=== PATIENT | male | born 1990 | race Caucasian/White ===

== ENCOUNTER 2019-11-03 02:30 | Emergency (ER) | payer MEDICAID, SELFPAY ==
[2019-11-03 02:31] VITALS: BP 126/77; PULSE 109; RESP 18; TEMP 36.7; O2SAT 100
--- NOTE | 2019-11-03 03:09 | PC.NURSE ---
Patient refused to change into paper scrubs, patient states that he could not pee at this time and did not want to pee.
[2019-11-03 03:16] LABS: Basophils # 0.1 10^3/uL (0.0-0.1); Basophils % 0.6 %; Eosinophils # 0.3 10^3/uL (0.0-0.8); Eosinophils % 3.2 %; Hematocrit 44.9 % (42.0-52.0); Hemoglobin 14.4 g/dL (11.7-16.6); Lymphocytes % 29.4 %; Mean Corpuscular HGB Conc 32.1 g/dL (30.0-36.0); Mean Corpuscular Hemoglobin 30.8 pg (28.0-34.0); Mean Corpuscular Volume 95.9 fL (80-94); Monocytes # 0.8 10^3/uL (0.2-0.9); Monocytes % 7.7 %; Neutrophils # 5.9 10^3/uL (1.8-7.7); Neutrophils % 58.9 %; Nucleated Red Blood Cells % 0 %; Platelet Count 385 10^3/cmm (130-400); Red Blood Count 4.68 10^6/uL (4.1-5.3); Red Cell Distribution Width 13.2 % (12.1-15.1); White Blood Count 10.1 10^3/uL (4.0-10.0)
[2019-11-03 03:35] LABS: Alanine Aminotransferase 19 U/L (0-41); Albumin Level 4.5 g/dL (3.5-5.2); Alkaline Phosphatase 70 IU/L (40-130); Anion Gap 13.9 (5-19); Aspartate Amino Transferase 16 U/L (0-40); Blood Urea Nitrogen 20 mg/dL (6-20); Carbon Dioxide 29 mmol/L (22-29); Chloride 101 mmol/L (98-107); Globulin 2.5 g/dL (1.3-4.6); Glomerular Filtration Rate 79.7 mL/min (90-130); Glucose 98 mg/dL (65-115); Lithium < 0.1 mmol/L (0.6-1.2); Osmolality Calculated 287 mOsm/kg (285-295); Potassium 3.9 mmol/L (3.5-5.1); Sodium 140 mmol/L (136-145); Total Bilirubin 0.2 mg/dL (0.15-1.2)
[2019-11-03 03:40] LABS: Salicylate < 0.3 mg/dL (3-10)
[2019-11-03 03:41] LABS: Acetaminophen < 5.0 ug/mL (10-30); Alcohol Level < 10 mg/dL (0-10); Thyroid Stimulating Hormone 1.38 uIU/mL (0.27-4.20)
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
--- NOTE | 2019-11-03 05:45 | PC.NURSE ---
1:1 sitter maintained at doorway
--- NOTE | 2019-11-03 05:46 | PC.NURSE ---
Patient refused to change into paper scrubs
--- NOTE | 2019-11-03 06:23 | PC.NURSE ---
1:1 sitter maintained at doorway
--- NOTE | 2019-11-03 07:49 | PC.NURSE ---
DR PAULINO REQUESTED PATIENT NOT BE DRESSED OUT AND WILL WAIT FOR TO COME DOWN AND ASSESS HIM
[2019-11-03 07:51] LABS: Add Urine Microscopic? NO
[2019-11-03 07:56] LABS: Bilirubin Urine Neg (NEGATIVE); Blood Urine Neg (Negative); Glucose Urine UA Norm (Normal); Ketones Urine Negative (Negative); Leukocyte Esterase Urine Negative (Negative); Nitrate Urine Negative (Negative); Protein Urine Neg (Negative); Urine Appearance Clear (CLEAR); Urine Color Yellow (Yellow); Urobilinogen Urine Norm (Negative); pH Urine 6 (5-7)
[2019-11-03 08:49] LABS: Amphetamines Screen Urine Positive (Negative); Barbiturates Screen Urine Negative (Negative); Benzodiazepines Screen Urine Negative (Negative); Cocaine Screen Urine Negative (Negative); Opiate Screen Urine Negative (Negative); PCP Screen Urine Negative (Negative); THC Screen Urine Positive (Negative)
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
[2019-11-03 10:56] VITALS: BP 122/71; PULSE 20; RESP 18; O2SAT 100
== END 2019-11-03 11:03 ==
PROVIDERS: Emergency Medicine; Emergency Provider Emergency Medicine
DX: R45.851 Suicidal ideations (principal); F17.210 Nicotine dependence, cigarettes, uncomplicated
CPT/HCPCS: 12345; 80053; 80178; 80306; 80307; 81003; 84443; 85025; 99284; 99285

== ENCOUNTER 2020-06-28 20:18 | Emergency (ER) | payer MEDICAID, SELFPAY ==
[2020-06-28 20:22] VITALS: BP 134/76; PULSE 119; RESP 22; TEMP 37.2; O2SAT 100; BMI 22.2
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
[2020-06-28] MEDS: TRAMadol 50 mg Tablet PO (21:04)
== END 2020-06-28 21:37 | disposition home or self-care (01) ==
PROVIDERS: Emergency Provider Nurse Practitioner Family
DX: S01.311A Laceration without foreign body of right ear, initial encounter (principal); F17.210 Nicotine dependence, cigarettes, uncomplicated; Y04.8XXA Assault by other bodily force, initial encounter
CPT/HCPCS: 12345; 70160; 71101; 99281; 99283

== ENCOUNTER 2024-03-07 11:57 | Emergency (ER) | payer SELFPAY ==
[2024-03-07 12:02] VITALS: BP 119/71; PULSE 98; RESP 18; TEMP 36.7; O2SAT 98; BMI 21.5
--- NOTE | 2024-03-07 12:05 | ECG_ITS ---
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 Measurements Intervals [place] Rate: 93 P: 61 MO: 171 QRS: 69 QRSD: 93 T: 54 QT: 333 QTc: 416 Interpretive Statements SINUS RHYTHM Compared to ECG 05/18/2015 20:49:03 No significant changes Electronically Signed On 03-08-2024 18:06:53 CDT by Arcadio Wynn M.D. [id number]
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
[2024-03-07 12:13] LABS: Basophils # 0.1 10^3/uL (0.0-0.1); Basophils % 0.5 %; Eosinophils # 0.2 10^3/uL (0.0-0.8); Eosinophils % 2.3 %; Hematocrit 42.8 % (37-53); Lymphocytes # 2.2 10^3/uL (0.8-4.8); Lymphocytes % 22.1 %; Mean Corpuscular HGB Conc 32.9 g/dL (30-55); Mean Corpuscular Volume 94.1 fl (82-101); Mean Platelet Volume 9.2 fL (7.4-10.4); Monocytes # 0.7 10^3/uL (0.2-0.9); Monocytes % 7.3 %; Neutrophils # 6.83 10^3/uL (1.8-7.7); Neutrophils % 67.5 %; Nucleated Red Blood Cells % 0 %; Platelet Count 362 10^3/cmm (157-399); Red Blood Count 4.55 10^6/uL (3.85-5.65); Red Cell Distribution Width 13.4 % (12.1-15.1); White Blood Count 10.11 10^3/uL (3.29-11.43)
[2024-03-07 12:25] LABS: Alanine Aminotransferase 18 U/L (0-41); Albumin Level 4.5 g/dL (3.5-5.2); Alkaline Phosphatase 58 U/L (40-130); Anion Gap 16.5 (5-19); Aspartate Amino Transferase 19 U/L (0-40); Blood Urea Nitrogen 22 mg/dL (6-20); Calcium 9.8 mg/dL (8.5-10.5); Carbon Dioxide 26 mmol/L (22-29); Chloride 102 mmol/L (98-107); Creatinine Clr Calc Pharmacy 87.9476; Globulin 2.8 g/dL (1.3-4.6); Glomerular Filtration Rate 69.7 mL/min (90-130); Glucose 118 mg/dL (65-115); Osmolality Calculated 294 mOsm/kg (285-295); Potassium 4.5 mmol/L (3.5-5.1); Sodium 140 mmol/L (136-145); Total Bilirubin 0.4 mg/dL (0.15-1.2); Total Protein 7.3 g/dL (6.6-8.7)
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
[2024-03-07] MEDS: iohexol 350 mg/mL 500 mL Btl (per mL) IV (12:43)
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
[2024-03-07 13:59] LABS: Charge for UA Resulting for Rev
--- NOTE | 2024-03-07 14:02 | PC.NURSE ---
MEDICATION ADMINISTRATION DELAYED DUE TO THIS NURSE IN CT WITH OTHER PATIENT.
[2024-03-07 14:03] LABS: Bilirubin Urine Negative (Negative); Blood Urine Negative (Negative); Glucose Urine UA Negative (Normal); Ketones Urine Negative (Negative); Leukocyte Esterase Urine Negative (Negative); Nitrate Urine Negative (Negative); Protein Urine Negative (Negative); Urine Appearance Clear (CLEAR); Urine Color Yellow (Yellow); pH Urine 6.5 (5-7)
[2024-03-07 14:05] LABS: Bacteria Urine None Seen /hpf; Hyaline Casts Urine 1.21 /lpf; RBC Urine 0-2 /hpf (0-2); Squamous Epithelial Cell Urine 0-5 /hpf (0-5); WBC Urine 0-5 /hpf (0-5)
[2024-03-07 14:07] VITALS: RESP 16
[2024-03-07] MEDS: morphine 4 mg/mL SDV 1 mL IVP (14:07)
[2024-03-07] MEDS: ondansetron 2 mg/ML SDV 2 mL 4 MG IVP (14:08)
[2024-03-07] MEDS: tetanus-dipt-pertussis 0.5 mL SDV IM (14:15)
[2024-03-07 14:34] VITALS: PULSE 85; O2SAT 100
[2024-03-07 14:37] VITALS: BP 124/81
--- NOTE | 2024-03-07 15:36 | DCPLANNER ---
messaged ortho for er f/u
== END 2024-03-07 14:59 | disposition home or self-care (01) ==
PROVIDERS: Emergency Provider Family Medicine
DX: S42.022A Displaced fracture of shaft of left clavicle, initial encounter for closed fracture (principal); Z72.0 Tobacco use; V29.99XA Rider (driver) (passenger) of other motorcycle injured in unspecified traffic accident, initial encounter; S00.01XA Abrasion of scalp, initial encounter; Z23 Encounter for immunization
CPT/HCPCS: 70450; 71260; 72125; 73000; 74177; 80053; 81003; 81015; 85025; 90715; 93005; 96374; 96375; 99285; J2270; J2405; Q9967

== ENCOUNTER → 2024-03-13 14:30 | Outpatient (BNVA) | payer SELFPAY | PROVIDERS: Visit Provider Nurse Practitioner | DX: S42.022A Displaced fracture of shaft of left clavicle, initial encounter for closed fracture; V29.99XA Rider (driver) (passenger) of other motorcycle injured in unspecified traffic accident, initial encounter | CPT/HCPCS: 73000 ==

== ENCOUNTER 2024-03-14 12:10 | Day surgery (SDC) | payer SELFPAY ==
[2024-03-14] VITALS (15 sets, daily range): BP systolic 124–151; BP diastolic 63–92; PULSE 77–119; RESP 13–18; TEMP 36.2–37.1; O2SAT 92–100; BMI 21.5
[2024-03-14] MEDS: gabapentin 300 mg Capsule PO (12:45)
[2024-03-14] MEDS: CELEcoxib 200 mg Capsule 400 MG PO (12:45)
[2024-03-14] MEDS: acetaminophen 1,000 MG/100 ML PIGGYBACK 400 MG IV (12:47)
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
--- NOTE | 2024-03-14 12:52 | P.ANESASSM_ITS ---
Pre-Anesthetic Assessment Height/Weight: Height 1.78 m Weight 68.039 kg O2 Del Method Room Air 03/14/24 12:17 Preop Diagnosis: Left Clavicle Fracture Operation Date: 03/14/24 14:45 Proposed Procedures p ORIFCLAVICLE SHAFT FRACTURE(Left) - Daisy Mtz MD Familial anesthetic complications: none Was Beta Nelly taken within 24 hours: N/A Was Clonidine taken within 24 hours: N/A Last intake: Intake Last Liquid Date 03/14/24 Last Liquid Time 05:00 Last Solid Date 03/13/24 Last Solid Time 18:00 Social Tobacco and No alcohol 2 pack(s) per day Also uses Marijuana daily Exam alert, oriented x 3, clear to auscultation bilaterally and regular rate & rhythm Airway Submandibular: within normal limits Cervical ROM: within normal limits Mallampati: Class II Dentition: full History/ROS No significant history except as noted and No significant complaints Pulmonary None reported 4 METS CV/HEM None reported None reported Hepatic None reported GI None reported Metabolic None reported Musc/skel None reported Neuropsych None reported Anesthetic Plan ASA status: 2 Anesthesia: General and Regional (specify below) Other: ISB Risk of > 500 ml blood loss (7ml/kg in children): No Medications/Allergies Home Medications Medication Instructions Recorded Confirmed Last Taken Type hydrocodone 5 mg-acetaminophen 300 1 tab PO Q6H PRN pain 7 days #28 03/13/24 03/14/24 03/14/24 06:00 Rx mg tablet tabs Allergies Allergy/AdvReac Type Severity Reaction Status Date / Time No Known Allergies Allergy Verified 03/14/24 12:16 [facility] Anesthesia Family History Mother Cancer uterine Social History Smoking and tobacco/nicotine status: current every day tobacco/nicotine user Alcohol intake: never Marital status: Number of children: 6 Current occupational status: employed 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
[2024-03-14] MEDS: sodium chloride 0.9% 1,000 ML 30 ML IV (12:56)
--- NOTE | 2024-03-14 13:20 | ANES.PROC ---
Anesthesia Procedures Procedure/Date: 03/14/24 Nerve Block ^: Nerve Block 1: Main Anesthesia: other Time Out Performed: Yes Consent: requested by attending/covering physician and from patient Nerve block location: other (intermediate cervical plexus block) Anesthesia monitors applied: pulse oximetry, EKG, BP cuff and oxygen Nerve block position: semi sitting Anesthetic Used: ropivicaine 0.5% Amount of anesthesia used (mL): 20 Ultrasound used to: recognize landmarks Nerve Stimulator Used?: No Interscalene/Femoral BLK: 4 stimuplex 21 g needle used for position and inplane approach Injection: neg aspiration of heme Patient Tolerated Procedure: well Complications: none Additional Comments: decadron 4mg added
[2024-03-14] MEDS: ceFAZolin 2,000 mg SDV 2000 MG IVP (13:54)
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
[2024-03-14] MEDS: ceFAZolin 1,000 mg SDV 1000 MG IRRIGATION (14:40)
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
[2024-03-14] MEDS: fentaNYL 50 mcg/mL INJ 2mL IVP (16:28)
[2024-03-14] MEDS: HYDROcodone-acetaminophen 5-325 mg Tablet 1 TAB PO (17:37)
== END 2024-03-14 18:00 | disposition home or self-care (01) ==
PROVIDERS: Visit Provider Specialist
PROC: (CPT 23515; principal; 2024-03-14 14:25)
DX: S42.022A Displaced fracture of shaft of left clavicle, initial encounter for closed fracture (principal)
CPT/HCPCS: 23515; 73000; 76000; C1713; J0131; J0690; J1100; J1885; J2250; J2405; J2704; J3010; J3490; J7030